=== PATIENT | female | born 1950 | race Caucasian/White ===

== ENCOUNTER 2017-09-26 11:43 | Observation (INO) | payer MEDICARE, OTHER ==
[2017-09-26] MEDS: ASPIRIN 81 MG TAB PO (12:31)
[2017-09-26 12:37] LABS: ADD MAN DIFF? NO
[2017-09-26 12:46] LABS: BASOPHIL # 0.1 10^3/ul (0.0-0.1); BASOPHILS % 0.8 % (0.0-2.0); EOSINOPHILS # 0.2 10^3/ul (0.0-0.5); EOSINOPHILS % 2.3 % (0.0-7.0); HEMOGLOBIN 13.1 g/dl (12.0-16.0); LYMPHOCYTES # 1.8 10^3/ul (0.8-2.9); LYMPHOCYTES % 28.1 % (15.0-51.0); MEAN CORPUSCULAR HEMOGLOBIN 28.9 pg (29.0-33.0); MEAN CORPUSCULAR HGB CONC 32.8 g/dl (32.0-37.0); MEAN CORPUSCULAR VOLUME 88.1 fl (82.0-101.0); MEAN PLATELET VOLUME 11.2 fl (7.4-10.4); MONOCYTE # 0.5 10^3/ul (0.3-0.9); NEUTROPHILS % 61.6 % (39.0-77.0); PLATELET COUNT 261 10^3/UL (140-415); RED BLOOD COUNT 4.54 10^6/ul (4.20-5.40); RED CELL DISTRIBUTION WIDTH 14.9 % (11.5-14.5)
[2017-09-26 12:46] LABS: WHITE BLOOD COUNT 6.6 10^3/ul (4.8-10.8)
[2017-09-26 12:52] LABS: ALANINE AMINOTRANSFERASE 23 IU/L (13-69); ALBUMIN 4.2 g/dl (3.3-4.9); ALBUMIN/GLOBULIN RATIO 1.27; ALKALINE PHOSPHATASE 118 IU/L (42-121); ANION GAP 13 (8-16); ASPARTATE AMINO TRANSFERASE 68 IU/L (15-46); BILIRUBIN,INDIRECT 0.2 mg/dl (0-1.1); BILIRUBIN,TOTAL 0.2 mg/dl (0.2-1.3); BLOOD UREA NITROGEN 19 mg/dl (7-20); CALCIUM 9.9 mg/dl (8.4-10.2); CARBON DIOXIDE 30 mmol/L (21-31); CHLORIDE 106 mmol/L (97-110); CREATININE 0.68 mg/dl (0.44-1.00); GLUCOSE 101 mg/dl (70-220); LIPASE 46 U/L (23-300); POTASSIUM 4.4 mmol/L (3.5-5.1); SODIUM 145 mmol/L (135-144); TOTAL PROTEIN 7.5 g/dl (6.1-8.1)
[2017-09-26 13:04] LABS: B-TYPE NATRIURETIC PEPTIDE 577 PG/ML (0-125)
[2017-09-26 13:11] LABS: TROPONIN-I < 0.010 ng/ml (0.000-0.120)
[2017-09-26] MEDS ORDERED: morphine 2 MG INJ IV (16:00)
[2017-09-26] MEDS ORDERED: LORAZEPAM 2 MG INJ IV (16:00)
[2017-09-26] MEDS ORDERED: ALBUTEROL/IPRATROPIUM (NEB) 3 ML AMP HHN (16:00)
[2017-09-26] MEDS ORDERED: NACL 0.9% 3 ML SYG IV (16:00)
[2017-09-26] MEDS ORDERED: ONDANSETRON 4 MG INJ IV (16:00)
[2017-09-26] MEDS ORDERED: HYDROCODONE/APAP (5/325) TAB PO (16:00)
[2017-09-26] MEDS ORDERED: MAGNESIUM HYDROXIDE 30ML CUP PO (16:00)
[2017-09-26] MEDS ORDERED: NITROGLYCERIN (SL) 0.4 MG TAB SL (16:00)
[2017-09-26] MEDS ORDERED: DOCUSATE SODIUM 100 MG CAP PO (16:00)
[2017-09-26] MEDS ORDERED: NA PHOSPHATE/BIPHOS 133 ML ENEMA PR (16:00)
[2017-09-26] MEDS: SOD CHLORIDE 0.45% 1,000 ML IV (16:44)
[2017-09-26 16:59] LABS: CREATINE KINASE 90 IU/L (23-200)
[2017-09-26 17:12] LABS: CK INDEX 1.9; CK-MB 1.68 ng/ml (0.0-2.4)
[2017-09-26 17:18] LABS: FREE T4 (FREE THYROXINE) 1.03 ng/dl (0.78-2.44)
[2017-09-26 17:24] LABS: TROPONIN-I < 0.010 ng/ml (0.000-0.120)
[2017-09-26] MEDS: HEPARIN 5,000 UNIT/0.5 ML VIAL SC (21:12)
[2017-09-26 22:53] LABS: CREATINE KINASE 79 IU/L (23-200)
[2017-09-26 23:06] LABS: CK INDEX 1.7; CK-MB 1.36 ng/ml (0.0-2.4)
[2017-09-26 23:10] LABS: TROPONIN-I < 0.010 ng/ml (0.000-0.120)
[2017-09-27] MEDS: ACETAMINOPHEN 325 MG TAB PO ×2 (01:09→14:05)
[2017-09-27] MEDS: SOD CHLORIDE 0.45% 1,000 ML IV ×2 (05:23→19:05)
[2017-09-27] MEDS: PANTOPRAZOLE (EC) 40 MG TAB PO (05:24)
[2017-09-27 06:12] LABS: ADD MAN DIFF? NO
[2017-09-27 06:13] LABS: BASOPHILS % 0.7 % (0.0-2.0); EOSINOPHILS # 0.3 10^3/ul (0.0-0.5); EOSINOPHILS % 4.6 % (0.0-7.0); HEMATOCRIT 37.4 % (37.0-47.0); HEMOGLOBIN 12.3 g/dl (12.0-16.0); LYMPHOCYTES # 2.1 10^3/ul (0.8-2.9); LYMPHOCYTES % 35.7 % (15.0-51.0); MEAN CORPUSCULAR HEMOGLOBIN 29.4 pg (29.0-33.0); MEAN CORPUSCULAR HGB CONC 32.9 g/dl (32.0-37.0); MEAN CORPUSCULAR VOLUME 89.5 fl (82.0-101.0); MEAN PLATELET VOLUME 11.2 fl (7.4-10.4); MONOCYTE # 0.5 10^3/ul (0.3-0.9); NEUTROPHILS % 50.8 % (39.0-77.0); PLATELET COUNT 228 10^3/UL (140-415); RED BLOOD COUNT 4.18 10^6/ul (4.20-5.40); RED CELL DISTRIBUTION WIDTH 15.1 % (11.5-14.5)
[2017-09-27 06:13] LABS: WHITE BLOOD COUNT 5.9 10^3/ul (4.8-10.8)
[2017-09-27 06:39] LABS: ANION GAP 6 (8-16); BLOOD UREA NITROGEN 17 mg/dl (7-20); CALCIUM 8.9 mg/dl (8.4-10.2); CARBON DIOXIDE 31 mmol/L (21-31); CHLORIDE 106 mmol/L (97-110); CHOLESTEROL 152 mg/dl (100-200); CREATININE 0.64 mg/dl (0.44-1.00); GLUCOSE 94 mg/dl (70-220); HDL CHOLESTEROL 38 mg/dl (35-98); LDL CHOLESTEROL,CALCULATED 83 mg/dl; MAGNESIUM 2.2 mg/dl (1.7-2.5); PHOSPHORUS 4.4 mg/dl (2.5-4.9); POTASSIUM 4.2 mmol/L (3.5-5.1); SODIUM 139 mmol/L (135-144); TRIGLYCERIDES 156 mg/dl (0-149)
[2017-09-27] MEDS: ASPIRIN (EC) 325 MG TAB PO (08:03)
[2017-09-27] MEDS: HEPARIN 5,000 UNIT/0.5 ML VIAL SC ×2 (08:04→21:50)
[2017-09-27 08:25] LABS: HEMOGLOBIN A1C 6.1 % (0-5.9)
[2017-09-27] MEDS ORDERED: LISINOPRIL 5 MG TAB PO (18:30)
[2017-09-27] MEDS: ATORVASTATIN 10 MG TAB PO (21:42)
[2017-09-27] MEDS: LOSARTAN 50 MG TAB PO (21:42)
[2017-09-28 06:09] LABS: ADD MAN DIFF? NO
[2017-09-28] MEDS: PANTOPRAZOLE (EC) 40 MG TAB PO (06:13)
[2017-09-28 06:21] LABS: BASOPHIL # 0.1 10^3/ul (0.0-0.1); EOSINOPHILS # 0.3 10^3/ul (0.0-0.5); EOSINOPHILS % 5.1 % (0.0-7.0); HEMATOCRIT 38.1 % (37.0-47.0); HEMOGLOBIN 12.3 g/dl (12.0-16.0); LYMPHOCYTES # 2.1 10^3/ul (0.8-2.9); LYMPHOCYTES % 40.6 % (15.0-51.0); MEAN CORPUSCULAR HEMOGLOBIN 28.7 pg (29.0-33.0); MEAN CORPUSCULAR HGB CONC 32.3 g/dl (32.0-37.0); MONOCYTE # 0.4 10^3/ul (0.3-0.9); MONOCYTES % 7.8 % (0.0-11.0); NEUTROPHIL # 2.3 10^3/ul (1.6-7.5); NEUTROPHILS % 45.3 % (39.0-77.0); PLATELET COUNT 223 10^3/UL (140-415); RED BLOOD COUNT 4.28 10^6/ul (4.20-5.40)
[2017-09-28 06:21] LABS: WHITE BLOOD COUNT 5.1 10^3/ul (4.8-10.8)
[2017-09-28 06:54] LABS: CREATINE KINASE 65 IU/L (23-200)
[2017-09-28 07:04] LABS: CK INDEX 1.8; CK-MB 1.17 ng/ml (0.0-2.4)
[2017-09-28 07:22] LABS: ALANINE AMINOTRANSFERASE 32 IU/L (13-69); ALBUMIN 3.7 g/dl (3.3-4.9); ALBUMIN/GLOBULIN RATIO 1.42; ALKALINE PHOSPHATASE 79 IU/L (42-121); ANION GAP 6 (8-16); ASPARTATE AMINO TRANSFERASE 19 IU/L (15-46); BILIRUBIN,INDIRECT 0.5 mg/dl (0-1.1); BILIRUBIN,TOTAL 0.5 mg/dl (0.2-1.3); BLOOD UREA NITROGEN 16 mg/dl (7-20); CALCIUM 9.3 mg/dl (8.4-10.2); CARBON DIOXIDE 32 mmol/L (21-31); CHLORIDE 106 mmol/L (97-110); CREATININE 0.63 mg/dl (0.44-1.00); GLUCOSE 100 mg/dl (70-220); POTASSIUM 4.4 mmol/L (3.5-5.1); SODIUM 140 mmol/L (135-144); TOTAL PROTEIN 6.3 g/dl (6.1-8.1)
[2017-09-28 07:26] LABS: TROPONIN-I < 0.010 ng/ml (0.000-0.120)
[2017-09-28 07:31] LABS: B-TYPE NATRIURETIC PEPTIDE 247 PG/ML (0-125)
[2017-09-28] MEDS: SOD CHLORIDE 0.45% 1,000 ML IV ×2 (08:00→13:10)
[2017-09-28] MEDS: LOSARTAN 50 MG TAB PO ×2 (09:24→20:24)
[2017-09-28] MEDS: ASPIRIN (EC) 325 MG TAB PO (09:24)
[2017-09-28] MEDS: HYDROCHLOROTHIAZIDE 12.5 MG CAP PO (09:25)
[2017-09-28] MEDS: HEPARIN 5,000 UNIT/0.5 ML VIAL SC ×2 (09:28→20:06)
[2017-09-28 09:42] LABS: ADD UMIC NO; UR ASCORBIC ACID NEGATIVE (NEGATIVE); UR BILIRUBIN (Dip) NEGATIVE (NEGATIVE); UR BLOOD (Dip) NEGATIVE (NEGATIVE); UR CLARITY CLEAR (CLEAR); UR COLOR COLORLESS (YELLOW); UR GLUCOSE (Dip) NEGATIVE (NEGATIVE); UR KETONES (Dip) NEGATIVE (NEGATIVE); UR LEUKOCYTE ESTERASE (Dip) NEGATIVE Leu/ul (NEGATIVE); UR NITRITE (Dip) NEGATIVE (NEGATIVE); UR SPECIFIC GRAVITY (Dip) 1.004 (1.003-1.030); UR TOTAL PROTEIN (Dip) NEGATIVE (NEGATIVE); UR UROBILINOGEN (Dip) NEGATIVE (NEGATIVE)
[2017-09-28] MEDS: hydrALAzine 20 MG INJ IV (11:31)
[2017-09-28] MEDS: REGADENOSON 0.4 MG/5 ML SYG (16:26)
[2017-09-28] MEDS: AMLODIPINE 5 MG TAB PO (17:24)
[2017-09-28] MEDS: ACETAMINOPHEN 325 MG TAB PO (17:24)
[2017-09-28] MEDS ORDERED: morphine LIQ (10 MG/5 ML) CUP PO (17:40)
[2017-09-28] MEDS: ATORVASTATIN 10 MG TAB PO (20:06)
[2017-09-29] MEDS: PANTOPRAZOLE (EC) 40 MG TAB PO (05:35)
[2017-09-29] MEDS: ASPIRIN (EC) 325 MG TAB PO (08:18)
[2017-09-29] MEDS: HYDROCHLOROTHIAZIDE 12.5 MG CAP PO (08:18)
[2017-09-29] MEDS: LOSARTAN 50 MG TAB PO (08:19)
[2017-09-29] MEDS: AMLODIPINE 5 MG TAB PO (08:19)
[2017-09-29] MEDS: HEPARIN 5,000 UNIT/0.5 ML VIAL SC (08:20)
[2017-09-29 08:53] LABS: ADD MAN DIFF? NO
[2017-09-29 08:56] LABS: WHITE BLOOD COUNT 7.8 10^3/ul (4.8-10.8)
[2017-09-29 08:56] LABS: BASOPHIL # 0.1 10^3/ul (0.0-0.1); BASOPHILS % 0.6 % (0.0-2.0); EOSINOPHILS # 0.2 10^3/ul (0.0-0.5); EOSINOPHILS % 2.3 % (0.0-7.0); HEMOGLOBIN 12.6 g/dl (12.0-16.0); LYMPHOCYTES % 25.4 % (15.0-51.0); MEAN CORPUSCULAR HEMOGLOBIN 28.8 pg (29.0-33.0); MEAN CORPUSCULAR HGB CONC 32.3 g/dl (32.0-37.0); MEAN PLATELET VOLUME 10.8 fl (7.4-10.4); MONOCYTE # 0.6 10^3/ul (0.3-0.9); MONOCYTES % 7.7 % (0.0-11.0); NEUTROPHILS % 63.7 % (39.0-77.0); PLATELET COUNT 233 10^3/UL (140-415); RED BLOOD COUNT 4.38 10^6/ul (4.20-5.40)
[2017-09-29 09:17] LABS: ANION GAP 7 (8-16); BLOOD UREA NITROGEN 23 mg/dl (7-20); CALCIUM 9.2 mg/dl (8.4-10.2); CARBON DIOXIDE 31 mmol/L (21-31); CHLORIDE 105 mmol/L (97-110); CREATININE 0.74 mg/dl (0.44-1.00); GLUCOSE 102 mg/dl (70-220); POTASSIUM 3.8 mmol/L (3.5-5.1); SODIUM 139 mmol/L (135-144)
== END 2017-09-29 15:45 | disposition home or self-care (01) ==
LOC: MS3 09-27 16:13 → MS4 09-28 14:14 → E/R 11:43 → MS3 09-27 16:15
DX: R07.9 Chest pain, unspecified (principal); I10 Essential (primary) hypertension; E78.00 Pure hypercholesterolemia, unspecified; E66.9 Obesity, unspecified; Z68.29 Body mass index [BMI] 29.0-29.9, adult; Z79.82 Long term (current) use of aspirin
CPT/HCPCS: 36415; 71045; 78452; 80048; 80053; 80061; 81003; 82550; 82553; 82962; 83036; 83690; 83735; 83880; 84100; 84439; 84443; 84484; 85025; 93005; 93017; 93306; 97161; 99217; 99285-25; G0378

== ENCOUNTER 2017-11-04 15:18 | Emergency (ER) | payer MEDICARE, OTHER ==
[2017-11-04] MEDS: KETOROLAC 60 MG INJ IM (16:09)
== END 2017-11-04 16:36 | disposition home or self-care (01) ==
LOC: FTE 15:18
DX: M54.2 Cervicalgia (principal); I10 Essential (primary) hypertension; Z79.82 Long term (current) use of aspirin
CPT/HCPCS: 99284

== ENCOUNTER 2017-11-27 11:39 | Inpatient (IN) | payer MEDICARE, OTHER ==
[2017-11-27 12:42] LABS: ADD MAN DIFF? NO
[2017-11-27 12:50] LABS: WHITE BLOOD COUNT 5.6 10^3/ul (4.8-10.8)
[2017-11-27 12:50] LABS: BASOPHIL # 0.1 10^3/ul (0.0-0.1); BASOPHILS % 0.9 % (0.0-2.0); EOSINOPHILS # 0.1 10^3/ul (0.0-0.5); EOSINOPHILS % 2.3 % (0.0-7.0); HEMOGLOBIN 12.6 g/dl (12.0-16.0); LYMPHOCYTES # 1.6 10^3/ul (0.8-2.9); LYMPHOCYTES % 29.1 % (15.0-51.0); MEAN CORPUSCULAR HEMOGLOBIN 28.6 pg (29.0-33.0); MEAN CORPUSCULAR HGB CONC 33.2 g/dl (32.0-37.0); MEAN CORPUSCULAR VOLUME 86.2 fl (82.0-101.0); MEAN PLATELET VOLUME 10.7 fl (7.4-10.4); MONOCYTE # 0.5 10^3/ul (0.3-0.9); MONOCYTES % 8.1 % (0.0-11.0); NEUTROPHIL # 3.3 10^3/ul (1.6-7.5); NEUTROPHILS % 59.2 % (39.0-77.0); PLATELET COUNT 252 10^3/UL (140-415); RED BLOOD COUNT 4.41 10^6/ul (4.20-5.40); RED CELL DISTRIBUTION WIDTH 14.9 % (11.5-14.5)
[2017-11-27 13:05] LABS: ANION GAP 11 (8-16); BLOOD UREA NITROGEN 17 mg/dl (7-20); CALCIUM 9.2 mg/dl (8.4-10.2); CARBON DIOXIDE 28 mmol/L (21-31); CHLORIDE 107 mmol/L (97-110); GLUCOSE 106 mg/dl (70-220); POTASSIUM 3.7 mmol/L (3.5-5.1); SODIUM 142 mmol/L (135-144)
[2017-11-27 13:15] LABS: TROPONIN-I < 0.010 ng/ml (0.000-0.120)
[2017-11-27 13:43] LABS: ALANINE AMINOTRANSFERASE 19 IU/L (13-69); ALKALINE PHOSPHATASE 90 IU/L (42-121); ASPARTATE AMINO TRANSFERASE 37 IU/L (15-46); BILIRUBIN,INDIRECT 0.4 mg/dl (0-1.1); BILIRUBIN,TOTAL 0.4 mg/dl (0.2-1.3); CREATINE KINASE 110 IU/L (23-200); TOTAL PROTEIN 7.1 g/dl (6.1-8.1)
[2017-11-27 14:30] LABS: URINE BLOOD (Dip) POC Negative (NEGATIVE); URINE GLUCOSE (Dip) POC Negative (NEGATIVE); URINE KETONES (Dip) POC Negative (NEGATIVE); URINE LEUKOCYTE EST (Dip) POC 1+ (NEGATIVE); URINE NITRITE (Dip) POC Negative (NEGATIVE); URINE TOTAL PROTEIN POC Trace (NEGATIVE)
[2017-11-27 14:40] LABS: ADD UMIC YES; UR ASCORBIC ACID 20 mg/dL (NEGATIVE); UR BILIRUBIN (Dip) NEGATIVE (NEGATIVE); UR BLOOD (Dip) NEGATIVE (NEGATIVE); UR CLARITY SLIGHTLY CLOUDY (CLEAR); UR COLOR YELLOW (YELLOW); UR GLUCOSE (Dip) NEGATIVE (NEGATIVE); UR KETONES (Dip) NEGATIVE (NEGATIVE); UR LEUKOCYTE ESTERASE (Dip) 3+ Leu/ul (NEGATIVE); UR NITRITE (Dip) NEGATIVE (NEGATIVE); UR NONSQUAMOUS EPITHELIAL CELL 3 /HPF (NONE SEEN); UR RBC 1 /HPF (0-5); UR SPECIFIC GRAVITY (Dip) 1.017 (1.003-1.030); UR SQUAMOUS EPITHELIAL CELL FEW /HPF (FEW); UR TOTAL PROTEIN (Dip) NEGATIVE (NEGATIVE); UR UROBILINOGEN (Dip) NEGATIVE (NEGATIVE); UR WBC 30 /HPF (0-5)
[2017-11-27] MEDS: ONDANSETRON 4 MG INJ IV (15:28)
[2017-11-27] MEDS: KETOROLAC 30 MG INJ IV (15:28)
[2017-11-27] MEDS ORDERED: ACETAMINOPHEN 325 MG TAB PO ×2 (17:30→18:30)
[2017-11-27] MEDS ORDERED: ONDANSETRON 4 MG INJ IV (17:30)
[2017-11-27] MEDS ORDERED: NACL 0.9% 3 ML SYG IV (18:30)
[2017-11-27] MEDS: LOSARTAN 50 MG TAB PO ×2 (19:12→21:33)
[2017-11-27] MEDS: ATORVASTATIN 40 MG TAB PO (21:33)
[2017-11-27] MEDS: ACETAMINOPHEN 325 MG TAB PO (21:47)
[2017-11-27] MEDS: KETOROLAC 15 MG INJ IV (22:26)
[2017-11-28 07:25] LABS: ADD MAN DIFF? NO
[2017-11-28 07:40] LABS: BASOPHILS % 0.7 % (0.0-2.0); EOSINOPHILS # 0.2 10^3/ul (0.0-0.5); EOSINOPHILS % 3.4 % (0.0-7.0); HEMATOCRIT 37.7 % (37.0-47.0); HEMOGLOBIN 12.1 g/dl (12.0-16.0); LYMPHOCYTES # 1.9 10^3/ul (0.8-2.9); LYMPHOCYTES % 31.4 % (15.0-51.0); MEAN CORPUSCULAR HEMOGLOBIN 28.5 pg (29.0-33.0); MEAN CORPUSCULAR HGB CONC 32.1 g/dl (32.0-37.0); MEAN CORPUSCULAR VOLUME 88.9 fl (82.0-101.0); MONOCYTE # 0.5 10^3/ul (0.3-0.9); MONOCYTES % 8.1 % (0.0-11.0); NEUTROPHIL # 3.4 10^3/ul (1.6-7.5); NEUTROPHILS % 56.2 % (39.0-77.0); PLATELET COUNT 248 10^3/UL (140-415); RED BLOOD COUNT 4.24 10^6/ul (4.20-5.40)
[2017-11-28 07:52] LABS: HEMOGLOBIN A1C 6.2 % (0-5.9)
[2017-11-28 07:57] LABS: ANION GAP 12 (8-16); BLOOD UREA NITROGEN 30 mg/dl (7-20); CALCIUM 9.1 mg/dl (8.4-10.2); CARBON DIOXIDE 27 mmol/L (21-31); CHLORIDE 106 mmol/L (97-110); CREATININE 0.79 mg/dl (0.44-1.00); GLUCOSE 105 mg/dl (70-220); MAGNESIUM 2.1 mg/dl (1.7-2.5); PHOSPHORUS 5.1 mg/dl (2.5-4.9); POTASSIUM 4.1 mmol/L (3.5-5.1); SODIUM 141 mmol/L (135-144)
[2017-11-28 08:10] LABS: C-REACTIVE PROTEIN < 0.5 mg/dl (0.0-0.9)
[2017-11-28] MEDS: ASPIRIN (EC) 81 MG TAB PO (09:33)
[2017-11-28] MEDS: LOSARTAN 50 MG TAB PO ×2 (09:33→20:54)
[2017-11-28] MEDS: ENOXAPARIN 40 MG/0.4 ML SYG SC (09:34)
[2017-11-28] MEDS: hydrALAzine 20 MG INJ IV (17:38)
[2017-11-28] MEDS: LORAZEPAM 2 MG INJ IV (18:46)
[2017-11-28] MEDS: ATORVASTATIN 40 MG TAB PO (20:54)
[2017-11-29] MEDS: ASPIRIN (EC) 81 MG TAB PO (08:44)
[2017-11-29] MEDS: LOSARTAN 50 MG TAB PO ×2 (08:53→21:27)
[2017-11-29] MEDS: ENOXAPARIN 40 MG/0.4 ML SYG SC (08:59)
[2017-11-29] MEDS ORDERED: LORAZEPAM 1 MG TAB PO (15:00)
[2017-11-29] MEDS: ACETAMINOPHEN 325 MG TAB PO (16:02)
[2017-11-29] MEDS: DOCUSATE SODIUM 100 MG CAP PO (18:18)
[2017-11-29] MEDS: ATORVASTATIN 40 MG TAB PO (21:27)
[2017-11-30] MEDS: ASPIRIN (EC) 81 MG TAB PO (09:29)
[2017-11-30] MEDS: ENOXAPARIN 40 MG/0.4 ML SYG SC (09:29)
[2017-11-30] MEDS: LOSARTAN 50 MG TAB PO ×2 (09:30→21:21)
[2017-11-30] MEDS: NAPROXEN 500 MG TAB PO ×2 (13:35→21:22)
[2017-11-30] MEDS: FOSFOMYCIN 3 GM PACKET PO (13:36)
[2017-11-30] MEDS: LORAZEPAM 1 MG TAB PO (14:43)
[2017-11-30 15:46] LABS: MYOGLOBIN 30 mcg/L (< 67)
[2017-11-30] MEDS: ATORVASTATIN 40 MG TAB PO (21:21)
[2017-12-01] MEDS: NAPROXEN 500 MG TAB PO (08:31)
[2017-12-01] MEDS: ASPIRIN (EC) 81 MG TAB PO (08:31)
[2017-12-01] MEDS: ENOXAPARIN 40 MG/0.4 ML SYG SC (08:33)
[2017-12-01] MEDS: LOSARTAN 50 MG TAB PO ×2 (08:35→20:43)
[2017-12-01] MEDS: LORAZEPAM 2 MG INJ IV ×2 (15:00→22:20)
[2017-12-01] MEDS: ATORVASTATIN 40 MG TAB PO (20:43)
[2017-12-02] MEDS: LORAZEPAM 2 MG INJ IV ×2 (00:22→14:04)
[2017-12-02] MEDS: ASPIRIN (EC) 81 MG TAB PO (09:40)
[2017-12-02] MEDS: LOSARTAN 50 MG TAB PO ×2 (09:40→20:59)
[2017-12-02] MEDS: ENOXAPARIN 40 MG/0.4 ML SYG SC (09:41)
[2017-12-02 12:16] LABS: ANA SCREEN POSITIVE (NEGATIVE)
[2017-12-02 13:46] LABS: ANA PATTERN HOMOGENEOUS
[2017-12-02] MEDS: hydrALAzine 20 MG INJ IV (15:59)
[2017-12-02] MEDS ORDERED: BETAMET NA PHOS/AC(6 MG/ML) 5ML INJ INJ (18:30)
[2017-12-02] MEDS: BUPIVACAINE 0.5%/EPI 1:200,000 50 ML (MDV) INJ (18:30)
[2017-12-02] MEDS ORDERED: BUPIVACAINE 0.5%/EPI (SDV) 30 ML INJ INJ (19:00)
[2017-12-02] MEDS: ATORVASTATIN 40 MG TAB PO (20:58)
[2017-12-02] MEDS: BETAMET NA PHOS/AC(6 MG/ML) 5ML INJ INJ (22:17)
[2017-12-03 05:50] LABS: ADD MAN DIFF? NO
[2017-12-03 06:00] LABS: WHITE BLOOD COUNT 7.4 10^3/ul (4.8-10.8)
[2017-12-03 06:00] LABS: ABNORMAL IP MESSAGE 1; BASOPHILS % 0.1 % (0.0-2.0); HEMATOCRIT 38.3 % (37.0-47.0); HEMOGLOBIN 12.9 g/dl (12.0-16.0); IMMATURE GRANS #M 0.02 10^3/ul; IMMATURE GRANS % (M) 0.3 %; LYMPHOCYTES # 0.5 10^3/ul (0.8-2.9); LYMPHOCYTES % 7.3 % (15.0-51.0); MEAN CORPUSCULAR HEMOGLOBIN 29.6 pg (29.0-33.0); MEAN CORPUSCULAR HGB CONC 33.7 g/dl (32.0-37.0); MEAN CORPUSCULAR VOLUME 87.8 fl (82.0-101.0); MEAN PLATELET VOLUME 11.2 fl (7.4-10.4); MONOCYTE # 0.1 10^3/ul (0.3-0.9); NEUTROPHIL # 6.7 10^3/ul (1.6-7.5); NEUTROPHILS % 91.3 % (39.0-77.0); PLATELET COUNT 246 10^3/UL (140-415); RED BLOOD COUNT 4.36 10^6/ul (4.20-5.40); RED CELL DISTRIBUTION WIDTH 14.8 % (11.5-14.5)
[2017-12-03 06:13] LABS: POSITIVE DIFF @See below
[2017-12-03 06:19] LABS: ANION GAP 14 (8-16); BLOOD UREA NITROGEN 22 mg/dl (7-20); CALCIUM 9.2 mg/dl (8.4-10.2); CARBON DIOXIDE 24 mmol/L (21-31); CHLORIDE 108 mmol/L (97-110); GLUCOSE 155 mg/dl (70-220); POTASSIUM 4.4 mmol/L (3.5-5.1); SODIUM 142 mmol/L (135-144)
[2017-12-03] MEDS: LOSARTAN 50 MG TAB PO ×2 (09:28→20:45)
[2017-12-03] MEDS: ASPIRIN (EC) 81 MG TAB PO (09:28)
[2017-12-03] MEDS: ENOXAPARIN 40 MG/0.4 ML SYG SC (09:29)
[2017-12-03] MEDS: hydrALAzine 20 MG INJ IV (16:57)
[2017-12-03] MEDS: ATORVASTATIN 40 MG TAB PO (20:45)
[2017-12-04 05:06] LABS: WHITE BLOOD COUNT 10.8 10^3/ul (4.8-10.8)
[2017-12-04 05:06] LABS: BASOPHILS % 0.1 % (0.0-2.0); HEMATOCRIT 37.7 % (37.0-47.0); HEMOGLOBIN 12.4 g/dl (12.0-16.0); LYMPHOCYTES # 1.1 10^3/ul (0.8-2.9); LYMPHOCYTES % 10.5 % (15.0-51.0); MEAN CORPUSCULAR HEMOGLOBIN 29.1 pg (29.0-33.0); MEAN CORPUSCULAR HGB CONC 32.9 g/dl (32.0-37.0); MEAN CORPUSCULAR VOLUME 88.5 fl (82.0-101.0); MEAN PLATELET VOLUME 11.2 fl (7.4-10.4); MONOCYTE # 0.7 10^3/ul (0.3-0.9); MONOCYTES % 6.4 % (0.0-11.0); NEUTROPHIL # 8.9 10^3/ul (1.6-7.5); NEUTROPHILS % 82.4 % (39.0-77.0); PLATELET COUNT 249 10^3/UL (140-415); RED BLOOD COUNT 4.26 10^6/ul (4.20-5.40); RED CELL DISTRIBUTION WIDTH 15.1 % (11.5-14.5)
[2017-12-04 05:07] LABS: ADD MAN DIFF? NO
[2017-12-04 05:28] LABS: ANION GAP 13 (8-16); BLOOD UREA NITROGEN 24 mg/dl (7-20); CALCIUM 9.3 mg/dl (8.4-10.2); CARBON DIOXIDE 26 mmol/L (21-31); CHLORIDE 105 mmol/L (97-110); CREATININE 0.62 mg/dl (0.44-1.00); GLUCOSE 190 mg/dl (70-220); SODIUM 140 mmol/L (135-144)
[2017-12-04] MEDS: LOSARTAN 50 MG TAB PO ×2 (09:07→21:31)
[2017-12-04] MEDS: ASPIRIN (EC) 81 MG TAB PO (09:07)
[2017-12-04] MEDS: ENOXAPARIN 40 MG/0.4 ML SYG SC (09:09)
[2017-12-04] MEDS: ATORVASTATIN 40 MG TAB PO (21:31)
[2017-12-05 05:11] LABS: WHITE BLOOD COUNT 8.8 10^3/ul (4.8-10.8)
[2017-12-05 05:11] LABS: ADD MAN DIFF? NO; BASOPHILS % 0.3 % (0.0-2.0); EOSINOPHILS % 0.1 % (0.0-7.0); HEMATOCRIT 37.1 % (37.0-47.0); HEMOGLOBIN 12.2 g/dl (12.0-16.0); LYMPHOCYTES # 2.8 10^3/ul (0.8-2.9); LYMPHOCYTES % 31.4 % (15.0-51.0); MEAN CORPUSCULAR HEMOGLOBIN 28.9 pg (29.0-33.0); MEAN CORPUSCULAR HGB CONC 32.9 g/dl (32.0-37.0); MEAN CORPUSCULAR VOLUME 87.9 fl (82.0-101.0); MEAN PLATELET VOLUME 11.4 fl (7.4-10.4); MONOCYTE # 0.7 10^3/ul (0.3-0.9); MONOCYTES % 8.3 % (0.0-11.0); NEUTROPHIL # 5.2 10^3/ul (1.6-7.5); NEUTROPHILS % 59.7 % (39.0-77.0); PLATELET COUNT 243 10^3/UL (140-415); RED BLOOD COUNT 4.22 10^6/ul (4.20-5.40); RED CELL DISTRIBUTION WIDTH 15.5 % (11.5-14.5)
[2017-12-05 05:28] LABS: ANION GAP 11 (8-16); BLOOD UREA NITROGEN 27 mg/dl (7-20); CALCIUM 8.8 mg/dl (8.4-10.2); CARBON DIOXIDE 25 mmol/L (21-31); CHLORIDE 107 mmol/L (97-110); CREATININE 0.63 mg/dl (0.44-1.00); GLUCOSE 97 mg/dl (70-220); POTASSIUM 4.2 mmol/L (3.5-5.1); SODIUM 139 mmol/L (135-144)
[2017-12-05] MEDS: LOSARTAN 50 MG TAB PO ×2 (09:15→20:40)
[2017-12-05] MEDS: ASPIRIN (EC) 81 MG TAB PO (09:18)
[2017-12-05] MEDS: ENOXAPARIN 40 MG/0.4 ML SYG SC (09:21)
[2017-12-05] MEDS: hydrALAzine 20 MG INJ IV (11:57)
[2017-12-05] MEDS: ATORVASTATIN 40 MG TAB PO (20:39)
[2017-12-06 05:08] LABS: ADD MAN DIFF? NO
[2017-12-06 05:12] LABS: WHITE BLOOD COUNT 9.1 10^3/ul (4.8-10.8)
[2017-12-06 05:12] LABS: BASOPHIL # 0.1 10^3/ul (0.0-0.1); BASOPHILS % 0.6 % (0.0-2.0); EOSINOPHILS # 0.2 10^3/ul (0.0-0.5); EOSINOPHILS % 1.7 % (0.0-7.0); HEMATOCRIT 37.7 % (37.0-47.0); HEMOGLOBIN 12.6 g/dl (12.0-16.0); LYMPHOCYTES # 3.2 10^3/ul (0.8-2.9); LYMPHOCYTES % 35.5 % (15.0-51.0); MEAN CORPUSCULAR HEMOGLOBIN 29.6 pg (29.0-33.0); MEAN CORPUSCULAR HGB CONC 33.4 g/dl (32.0-37.0); MEAN CORPUSCULAR VOLUME 88.7 fl (82.0-101.0); MEAN PLATELET VOLUME 11.1 fl (7.4-10.4); MONOCYTE # 0.8 10^3/ul (0.3-0.9); MONOCYTES % 8.5 % (0.0-11.0); NEUTROPHIL # 4.9 10^3/ul (1.6-7.5); NEUTROPHILS % 53.6 % (39.0-77.0); PLATELET COUNT 239 10^3/UL (140-415); RED BLOOD COUNT 4.25 10^6/ul (4.20-5.40); RED CELL DISTRIBUTION WIDTH 15.4 % (11.5-14.5)
[2017-12-06 05:45] LABS: ANION GAP 12 (8-16); BLOOD UREA NITROGEN 24 mg/dl (7-20); CALCIUM 8.9 mg/dl (8.4-10.2); CARBON DIOXIDE 26 mmol/L (21-31); CHLORIDE 105 mmol/L (97-110); CREATININE 0.62 mg/dl (0.44-1.00); GLUCOSE 106 mg/dl (70-220); POTASSIUM 4.4 mmol/L (3.5-5.1); SODIUM 139 mmol/L (135-144)
[2017-12-06] MEDS: LOSARTAN 50 MG TAB PO (09:58)
[2017-12-06] MEDS: ASPIRIN (EC) 81 MG TAB PO (09:58)
[2017-12-06] MEDS: ENOXAPARIN 40 MG/0.4 ML SYG SC (10:01)
== END 2017-12-06 16:00 | disposition home health service (06) | DRG 556 ==
LOC: E/R 11:39 → TEL 11-28 17:11 → MS1 11-28 17:26
PROVIDERS: Internal Medicine
DX: M62.81 Muscle weakness (generalized) (principal); M48.02 Spinal stenosis, cervical region; N30.90 Cystitis, unspecified without hematuria; E11.9 Type 2 diabetes mellitus without complications; I10 Essential (primary) hypertension; M48.061 Spinal stenosis, lumbar region without neurogenic claudication; M75.122 Complete rotator cuff tear or rupture of left shoulder, not specified as traumatic; M75.121 Complete rotator cuff tear or rupture of right shoulder, not specified as traumatic; M19.012 Primary osteoarthritis, left shoulder; M19.011 Primary osteoarthritis, right shoulder; R39.15 Urgency of urination; E66.9 Obesity, unspecified; Z68.31 Body mass index [BMI] 31.0-31.9, adult; Z79.82 Long term (current) use of aspirin; Z91.19 Patient's noncompliance with other medical treatment and regimen; Z90.49 Acquired absence of other specified parts of digestive tract; Z86.73 Personal history of transient ischemic attack (TIA), and cerebral infarction without residual deficits
CPT/HCPCS: 36415; 70450; 71045; 72052; 72114; 72125; 72141; 72148; 73221; 80048; 80076; 81001; 81003; 82533; 82550; 82962; 83036; 83735; 83874; 84100; 84443; 84484; 85025; 85651; 86038; 86140; 93005; 96374; 96375; 97110; 97116; 97163; 97165; 97530; 97535; 99217; 99285-25; G0378

== ENCOUNTER 2017-12-28 16:33 | Inpatient (IN) | payer MEDICARE, OTHER ==
[2017-12-28] MEDS: LORAZEPAM 2 MG INJ IV ×2 (16:47→23:38)
[2017-12-28 16:49] LABS: ADD MAN DIFF? NO
[2017-12-28 17:02] LABS: WHITE BLOOD COUNT 10.4 10^3/ul (4.8-10.8)
[2017-12-28 17:02] LABS: BASOPHILS % 0.2 % (0.0-2.0); EOSINOPHILS # 0.2 10^3/ul (0.0-0.5); HEMATOCRIT 32.1 % (37.0-47.0); HEMOGLOBIN 10.6 g/dl (12.0-16.0); LYMPHOCYTES # 1.1 10^3/ul (0.8-2.9); LYMPHOCYTES % 10.2 % (15.0-51.0); MEAN CORPUSCULAR HEMOGLOBIN 29.1 pg (29.0-33.0); MEAN CORPUSCULAR VOLUME 88.2 fl (82.0-101.0); MEAN PLATELET VOLUME 11.1 fl (7.4-10.4); MONOCYTE # 0.8 10^3/ul (0.3-0.9); MONOCYTES % 7.6 % (0.0-11.0); NEUTROPHIL # 8.3 10^3/ul (1.6-7.5); NEUTROPHILS % 79.6 % (39.0-77.0); PLATELET COUNT 210 10^3/UL (140-415); RED BLOOD COUNT 3.64 10^6/ul (4.20-5.40); RED CELL DISTRIBUTION WIDTH 15.4 % (11.5-14.5)
[2017-12-28 17:20] LABS: ALANINE AMINOTRANSFERASE 23 IU/L (13-69); ALBUMIN 3.5 g/dl (3.3-4.9); ALBUMIN/GLOBULIN RATIO 1.34; ALKALINE PHOSPHATASE 85 IU/L (42-121); ANION GAP 10 (8-16); ASPARTATE AMINO TRANSFERASE 19 IU/L (15-46); BILIRUBIN,INDIRECT 0.4 mg/dl (0-1.1); BILIRUBIN,TOTAL 0.4 mg/dl (0.2-1.3); BLOOD UREA NITROGEN 29 mg/dl (7-20); CALCIUM 8.8 mg/dl (8.4-10.2); CARBON DIOXIDE 28 mmol/L (21-31); CHLORIDE 90 mmol/L (97-110); CREATININE 0.83 mg/dl (0.44-1.00); GLUCOSE 103 mg/dl (70-220); TOTAL PROTEIN 6.1 g/dl (6.1-8.1)
[2017-12-28 17:30] LABS: POTASSIUM 6.3 mmol/L (3.5-5.1); SODIUM 122 mmol/L (135-144)
[2017-12-28 17:32] LABS: B-TYPE NATRIURETIC PEPTIDE 213 PG/ML (0-125); TROPONIN-I < 0.012 ng/ml (0.000-0.120)
[2017-12-28] MEDS: HYDROCORTISONE 100 MG INJ IV (17:58)
[2017-12-28] MEDS ORDERED: ACETAMINOPHEN 325 MG TAB PO (18:00)
[2017-12-28] MEDS ORDERED: ONDANSETRON 4 MG INJ IV ×2 (18:00→19:30)
[2017-12-28 18:05] LABS: ADD UMIC NO; UR ASCORBIC ACID NEGATIVE (NEGATIVE); UR BILIRUBIN (Dip) NEGATIVE (NEGATIVE); UR BLOOD (Dip) NEGATIVE (NEGATIVE); UR CLARITY CLEAR (CLEAR); UR COLOR YELLOW (YELLOW); UR GLUCOSE (Dip) NEGATIVE (NEGATIVE); UR KETONES (Dip) NEGATIVE (NEGATIVE); UR LEUKOCYTE ESTERASE (Dip) NEGATIVE Leu/ul (NEGATIVE); UR NITRITE (Dip) NEGATIVE (NEGATIVE); UR SPECIFIC GRAVITY (Dip) 1.006 (1.003-1.030); UR TOTAL PROTEIN (Dip) NEGATIVE (NEGATIVE); UR UROBILINOGEN (Dip) NEGATIVE (NEGATIVE)
[2017-12-28] MEDS ORDERED: NACL 0.9% 3 ML SYG IV (19:30)
[2017-12-28 21:19] LABS: ANION GAP 15 (8-16); BLOOD UREA NITROGEN 28 mg/dl (7-20); CARBON DIOXIDE 25 mmol/L (21-31); CHLORIDE 89 mmol/L (97-110); CREATININE 0.78 mg/dl (0.44-1.00); GLUCOSE 132 mg/dl (70-220); SODIUM 123 mmol/L (135-144)
[2017-12-28] MEDS: ATORVASTATIN 40 MG TAB PO (21:54)
[2017-12-28] MEDS: NA POLYST SULFON 15 GM/60 ML BTL PR (21:57)
[2017-12-28 22:22] LABS: OSMOLALITY 263 mOsm/kg (280-295)
[2017-12-29 03:19] LABS: ADD UMIC NO; UR ASCORBIC ACID NEGATIVE (NEGATIVE); UR BILIRUBIN (Dip) NEGATIVE (NEGATIVE); UR BLOOD (Dip) NEGATIVE (NEGATIVE); UR CLARITY CLEAR (CLEAR); UR COLOR YELLOW (YELLOW); UR GLUCOSE (Dip) NEGATIVE (NEGATIVE); UR KETONES (Dip) NEGATIVE (NEGATIVE); UR LEUKOCYTE ESTERASE (Dip) NEGATIVE Leu/ul (NEGATIVE); UR NITRITE (Dip) NEGATIVE (NEGATIVE); UR SPECIFIC GRAVITY (Dip) 1.006 (1.003-1.030); UR TOTAL PROTEIN (Dip) NEGATIVE (NEGATIVE); UR UROBILINOGEN (Dip) NEGATIVE (NEGATIVE)
[2017-12-29 03:32] LABS: CREATININE,URINE RANDOM 27.87 mg/dl (20-320); POTASSIUM,URINE RANDOM 27.1 mmol/L (25-125)
[2017-12-29 03:35] LABS: SODIUM,URINE RANDOM < 13 mmol/L (30-90)
[2017-12-29 05:10] LABS: OSMOLALITY,URINE 208 mOsm/kg (250-1200)
[2017-12-29 06:00] LABS: ADD MAN DIFF? NO
[2017-12-29 06:07] LABS: WHITE BLOOD COUNT 6.9 10^3/ul (4.8-10.8)
[2017-12-29 06:07] LABS: BASOPHILS % 0.1 % (0.0-2.0); EOSINOPHILS % 0.3 % (0.0-7.0); HEMOGLOBIN 9.6 g/dl (12.0-16.0); LYMPHOCYTES # 0.8 10^3/ul (0.8-2.9); LYMPHOCYTES % 12.2 % (15.0-51.0); MEAN CORPUSCULAR HEMOGLOBIN 28.7 pg (29.0-33.0); MEAN CORPUSCULAR HGB CONC 33.1 g/dl (32.0-37.0); MEAN CORPUSCULAR VOLUME 86.8 fl (82.0-101.0); MEAN PLATELET VOLUME 11.3 fl (7.4-10.4); MONOCYTE # 0.5 10^3/ul (0.3-0.9); MONOCYTES % 6.8 % (0.0-11.0); NEUTROPHIL # 5.6 10^3/ul (1.6-7.5); NEUTROPHILS % 80.3 % (39.0-77.0); PLATELET COUNT 203 10^3/UL (140-415); RED BLOOD COUNT 3.34 10^6/ul (4.20-5.40); RED CELL DISTRIBUTION WIDTH 15.5 % (11.5-14.5)
[2017-12-29 06:37] LABS: ALANINE AMINOTRANSFERASE 22 IU/L (13-69); ALBUMIN 3.1 g/dl (3.3-4.9); ALBUMIN/GLOBULIN RATIO 1.34; ALKALINE PHOSPHATASE 63 IU/L (42-121); ANION GAP 10 (8-16); ASPARTATE AMINO TRANSFERASE 18 IU/L (15-46); BILIRUBIN,INDIRECT 0.5 mg/dl (0-1.1); BILIRUBIN,TOTAL 0.5 mg/dl (0.2-1.3); BLOOD UREA NITROGEN 27 mg/dl (7-20); CALCIUM 8.9 mg/dl (8.4-10.2); CARBON DIOXIDE 27 mmol/L (21-31); CHLORIDE 95 mmol/L (97-110); CHOL/HDL RATIO 1.5 RATIO; CHOLESTEROL 79 mg/dl (100-200); CREATININE 0.72 mg/dl (0.44-1.00); GLUCOSE 117 mg/dl (70-220); HDL CHOLESTEROL 51 mg/dl (33-92); LDL CHOLESTEROL,CALCULATED 17 mg/dl; PHOSPHORUS 4.5 mg/dl (2.5-4.9); POTASSIUM 5.6 mmol/L (3.5-5.1); SODIUM 126 mmol/L (135-144); TOTAL PROTEIN 5.4 g/dl (6.1-8.1); TRIGLYCERIDES 57 mg/dl (0-149)
[2017-12-29 07:19] LABS: FREE THYROXINE INDEX (Calc) 2.95 ug/ml (0.65-3.89); T3 UPTAKE 39.3 % (23.5-40.5); T4 (THYROXINE) 7.5 ug/dl (5.5-11.0)
[2017-12-29] MEDS: ASPIRIN (EC) 81 MG TAB PO (08:32)
[2017-12-29] MEDS: COSYNTROPIN 0.25 MG INJ IV (11:08)
[2017-12-29 11:57] LABS: ANION GAP 12 (8-16); BLOOD UREA NITROGEN 24 mg/dl (7-20); CARBON DIOXIDE 27 mmol/L (21-31); CHLORIDE 95 mmol/L (97-110); CREATININE 0.72 mg/dl (0.44-1.00); GLUCOSE 88 mg/dl (70-220); SODIUM 129 mmol/L (135-144)
[2017-12-29 13:13] LABS: IRON 67 ug/dl (35-150)
[2017-12-29 13:24] LABS: % IRON SATURATION 23 % SAT (22-52); TOTAL IRON BINDING CAPACITY 292 ug/dl (241-421)
[2017-12-29 14:47] LABS: FERRITIN 77.8 ng/ml (11.1-264.0)
[2017-12-29 14:50] LABS: SODIUM 128 mmol/L (135-144)
[2017-12-29] MEDS: ACETAMINOPHEN 325 MG TAB PO (15:36)
[2017-12-29] MEDS: ATORVASTATIN 40 MG TAB PO (20:21)
[2017-12-29] MEDS: HYDROCODONE/APAP (5/325) TAB PO (20:22)
[2017-12-30] MEDS: HYDROCODONE/APAP (5/325) TAB PO ×3 (00:44→22:46)
[2017-12-30 06:52] LABS: ADD MAN DIFF? NO
[2017-12-30 06:58] LABS: WHITE BLOOD COUNT 13.4 10^3/ul (4.8-10.8)
[2017-12-30 06:58] LABS: BASOPHILS % 0.2 % (0.0-2.0); EOSINOPHILS # 0.1 10^3/ul (0.0-0.5); EOSINOPHILS % 0.4 % (0.0-7.0); LYMPHOCYTES # 0.9 10^3/ul (0.8-2.9); LYMPHOCYTES % 6.4 % (15.0-51.0); MEAN CORPUSCULAR HEMOGLOBIN 29.1 pg (29.0-33.0); MEAN CORPUSCULAR HGB CONC 33.3 g/dl (32.0-37.0); MEAN CORPUSCULAR VOLUME 87.2 fl (82.0-101.0); MEAN PLATELET VOLUME 11.7 fl (7.4-10.4); MONOCYTE # 1.1 10^3/ul (0.3-0.9); MONOCYTES % 8.1 % (0.0-11.0); NEUTROPHIL # 11.3 10^3/ul (1.6-7.5); NEUTROPHILS % 84.4 % (39.0-77.0); PLATELET COUNT 185 10^3/UL (140-415); RED BLOOD COUNT 3.44 10^6/ul (4.20-5.40)
[2017-12-30 08:04] LABS: ANION GAP 12 (8-16); BLOOD UREA NITROGEN 23 mg/dl (7-20); CARBON DIOXIDE 28 mmol/L (21-31); CHLORIDE 95 mmol/L (97-110); CREATININE 0.77 mg/dl (0.44-1.00); GLUCOSE 96 mg/dl (70-220); SODIUM 130 mmol/L (135-144)
[2017-12-30 08:12] LABS: PHOSPHORUS 4.5 mg/dl (2.5-4.9)
[2017-12-30 08:12] LABS: MAGNESIUM 1.9 mg/dl (1.7-2.5)
[2017-12-30] MEDS: ASPIRIN (EC) 81 MG TAB PO (09:15)
[2017-12-30] MEDS: ATORVASTATIN 40 MG TAB PO (20:31)
[2017-12-31] MEDS: ASPIRIN (EC) 81 MG TAB PO (08:07)
[2017-12-31] MEDS: HYDROCODONE/APAP (5/325) TAB PO (08:07)
[2017-12-31 08:59] LABS: ANION GAP 12 (8-16); BLOOD UREA NITROGEN 26 mg/dl (7-20); CALCIUM 8.5 mg/dl (8.4-10.2); CARBON DIOXIDE 26 mmol/L (21-31); CHLORIDE 94 mmol/L (97-110); CREATININE 0.96 mg/dl (0.44-1.00); GLUCOSE 94 mg/dl (70-220); PHOSPHORUS 4.1 mg/dl (2.5-4.9); POTASSIUM 5.1 mmol/L (3.5-5.1); SODIUM 127 mmol/L (135-144)
[2017-12-31] MEDS ORDERED: FAMOTIDINE 20 MG TAB (10:26)
[2017-12-31] MEDS: DOCUSATE SODIUM 100 MG CAP PO ×2 (10:28→21:21)
[2017-12-31] MEDS: FAMOTIDINE 20 MG TAB PO ×2 (10:38→21:21)
[2017-12-31] MEDS: ACETAMINOPHEN 325 MG TAB PO (10:38)
[2017-12-31] MEDS: LIDOCAINE/MYLANTA 40 ML BTL PO (12:54)
[2017-12-31] MEDS: SOD CHLORIDE 0.9% 1,000 ML IV (15:06)
[2017-12-31 19:25] LABS: BLOOD UREA NITROGEN 28 mg/dl (7-20); CALCIUM 8.2 mg/dl (8.4-10.2); CARBON DIOXIDE 26 mmol/L (21-31); CHLORIDE 95 mmol/L (97-110); CREATININE 1.08 mg/dl (0.44-1.00); GLUCOSE 119 mg/dl (70-220); SODIUM 127 mmol/L (135-144)
[2017-12-31 19:32] LABS: ANION GAP 11 (8-16)
[2017-12-31] MEDS: ATORVASTATIN 40 MG TAB PO (21:21)
[2018-01-01] MEDS: HYDROCODONE/APAP (5/325) TAB PO ×2 (02:04→20:32)
[2018-01-01 02:52] LABS: SODIUM,URINE RANDOM 53 mmol/L (30-90)
[2018-01-01 03:02] LABS: ADD UMIC YES; UR AMORPHOUS CRYSTAL FEW /HPF (NONE SEEN); UR ASCORBIC ACID NEGATIVE (NEGATIVE); UR BACTERIA FEW /HPF (NONE SEEN); UR BILIRUBIN (Dip) NEGATIVE (NEGATIVE); UR BLOOD (Dip) 3+ mg/dL (NEGATIVE); UR CLARITY CLOUDY (CLEAR); UR COLOR YELLOW (YELLOW); UR GLUCOSE (Dip) NEGATIVE (NEGATIVE); UR KETONES (Dip) NEGATIVE (NEGATIVE); UR LEUKOCYTE ESTERASE (Dip) 3+ Leu/ul (NEGATIVE); UR NITRITE (Dip) NEGATIVE (NEGATIVE); UR RBC 8 /HPF (0-5); UR SPECIFIC GRAVITY (Dip) 1.005 (1.003-1.030); UR TOTAL PROTEIN (Dip) 1+ mg/dl (NEGATIVE); UR UROBILINOGEN (Dip) NEGATIVE (NEGATIVE); UR WBC 81 /HPF (0-5)
[2018-01-01 04:25] LABS: OSMOLALITY,URINE 219 mOsm/kg (250-1200)
[2018-01-01 06:41] LABS: ADD MAN DIFF? NO
[2018-01-01 06:56] LABS: BASOPHILS % 0.3 % (0.0-2.0); EOSINOPHILS # 0.3 10^3/ul (0.0-0.5); HEMOGLOBIN 8.9 g/dl (12.0-16.0); LYMPHOCYTES # 0.9 10^3/ul (0.8-2.9); LYMPHOCYTES % 10.1 % (15.0-51.0); MEAN CORPUSCULAR HEMOGLOBIN 28.9 pg (29.0-33.0); MEAN CORPUSCULAR VOLUME 87.7 fl (82.0-101.0); MEAN PLATELET VOLUME 11.6 fl (7.4-10.4); MONOCYTE # 0.6 10^3/ul (0.3-0.9); MONOCYTES % 6.1 % (0.0-11.0); NEUTROPHIL # 7.4 10^3/ul (1.6-7.5); NEUTROPHILS % 80.1 % (39.0-77.0); PLATELET COUNT 147 10^3/UL (140-415); RED BLOOD COUNT 3.08 10^6/ul (4.20-5.40); RED CELL DISTRIBUTION WIDTH 16.4 % (11.5-14.5)
[2018-01-01 06:56] LABS: WHITE BLOOD COUNT 9.2 10^3/ul (4.8-10.8)
[2018-01-01 07:18] LABS: ANION GAP 11 (8-16); BLOOD UREA NITROGEN 21 mg/dl (7-20); CALCIUM 8.1 mg/dl (8.4-10.2); CARBON DIOXIDE 27 mmol/L (21-31); CHLORIDE 98 mmol/L (97-110); GLUCOSE 102 mg/dl (70-220); MAGNESIUM 2.1 mg/dl (1.7-2.5); PHOSPHORUS 3.8 mg/dl (2.5-4.9); POTASSIUM 4.8 mmol/L (3.5-5.1); SODIUM 131 mmol/L (135-144)
[2018-01-01] MEDS: ASPIRIN (EC) 81 MG TAB PO (08:32)
[2018-01-01] MEDS: DOCUSATE SODIUM 100 MG CAP PO ×2 (08:32→20:30)
[2018-01-01] MEDS: FAMOTIDINE 20 MG TAB PO (08:32)
[2018-01-01] MEDS: SOD CHLORIDE 0.9% 1,000 ML IV (08:33)
[2018-01-01] MEDS: PANTOPRAZOLE 40 MG INJ IV ×2 (12:02→18:22)
[2018-01-01] MEDS ORDERED: PANTOPRAZOLE 40 MG INJ IV (18:00)
[2018-01-01] MEDS: ATORVASTATIN 40 MG TAB PO (20:30)
[2018-01-01] MEDS: ALPRAZOLAM 1 MG TAB PO (21:28)
[2018-01-02] MEDS: HYDROCODONE/APAP (5/325) TAB PO ×3 (01:37→17:13)
[2018-01-02] MEDS: PANTOPRAZOLE 40 MG INJ IV (06:41)
[2018-01-02] MEDS: SOD CHLORIDE 0.9% 1,000 ML IV (06:41)
[2018-01-02 06:57] LABS: ADD MAN DIFF? NO
[2018-01-02 07:02] LABS: WHITE BLOOD COUNT 7.7 10^3/ul (4.8-10.8)
[2018-01-02 07:02] LABS: BASOPHILS % 0.3 % (0.0-2.0); EOSINOPHILS # 0.5 10^3/ul (0.0-0.5); EOSINOPHILS % 6.9 % (0.0-7.0); HEMATOCRIT 26.8 % (37.0-47.0); HEMOGLOBIN 8.8 g/dl (12.0-16.0); LYMPHOCYTES # 1.3 10^3/ul (0.8-2.9); LYMPHOCYTES % 16.7 % (15.0-51.0); MEAN CORPUSCULAR HEMOGLOBIN 29.3 pg (29.0-33.0); MEAN CORPUSCULAR HGB CONC 32.8 g/dl (32.0-37.0); MEAN CORPUSCULAR VOLUME 89.3 fl (82.0-101.0); MEAN PLATELET VOLUME 11.7 fl (7.4-10.4); MONOCYTE # 0.7 10^3/ul (0.3-0.9); MONOCYTES % 9.3 % (0.0-11.0); NEUTROPHIL # 5.1 10^3/ul (1.6-7.5); NEUTROPHILS % 66.4 % (39.0-77.0); PLATELET COUNT 164 10^3/UL (140-415); RED CELL DISTRIBUTION WIDTH 16.3 % (11.5-14.5)
[2018-01-02 07:30] LABS: ANION GAP 9 (8-16); BLOOD UREA NITROGEN 16 mg/dl (7-20); CALCIUM 8.2 mg/dl (8.4-10.2); CARBON DIOXIDE 28 mmol/L (21-31); CHLORIDE 103 mmol/L (97-110); CREATININE 0.75 mg/dl (0.44-1.00); GLUCOSE 96 mg/dl (70-220); MAGNESIUM 1.9 mg/dl (1.7-2.5); PHOSPHORUS 4.3 mg/dl (2.5-4.9); POTASSIUM 4.5 mmol/L (3.5-5.1); SODIUM 135 mmol/L (135-144)
[2018-01-02] MEDS: ASPIRIN (EC) 81 MG TAB PO (08:41)
[2018-01-02] MEDS: DOCUSATE SODIUM 100 MG CAP PO (08:41)
== END 2018-01-02 17:45 | DRG 641 ==
LOC: E/R 16:33 → TEL 17:56
DX: E87.1 Hypo-osmolality and hyponatremia (principal); N17.9 Acute kidney failure, unspecified; E87.5 Hyperkalemia; E66.9 Obesity, unspecified; M62.81 Muscle weakness (generalized); K21.9 Gastro-esophageal reflux disease without esophagitis; I89.0 Lymphedema, not elsewhere classified; E78.5 Hyperlipidemia, unspecified; I10 Essential (primary) hypertension; F41.9 Anxiety disorder, unspecified; T44.5X5A Adverse effect of predominantly beta-adrenoreceptor agonists, initial encounter; Y92.129 Unspecified place in nursing home as the place of occurrence of the external cause; Z68.34 Body mass index [BMI] 34.0-34.9, adult; Z71.3 Dietary counseling and surveillance; Z74.01 Bed confinement status; Z86.73 Personal history of transient ischemic attack (TIA), and cerebral infarction without residual deficits; Z90.49 Acquired absence of other specified parts of digestive tract
CPT/HCPCS: 36415; 70450; 71045; 80048; 80053; 80061; 81001; 81003; 82533; 82728; 83540; 83735; 83880; 83930; 83935; 84100; 84133; 84155; 84295; 84300; 84436; 84443; 84479; 84484; 85025; 87040; 87081; 92610; 93005; 93306; 96374; 99285-25